=== PATIENT | female | born 1990 | race Caucasian/White ===

== ENCOUNTER 2019-02-23 10:35 | Emergency (ER) | payer OTHER ==
[~2019-02-23] VITALS: Ht 170.2 cm; Wt 79.4 kg
[2019-02-23] MEDS ORDERED: NORCO 5-325 TA1 EAC1 PO (11:28)
[2019-02-23] MEDS ORDERED: IBUPROFEN 800800 M1 PO (11:28)
[2019-02-23 11:48] VITALS: BP 148/115
== END 2019-02-23 11:49 | disposition home or self-care (01) ==
LOC: M.ERS 10:35
DX: M25.512 Pain in left shoulder (principal); Z88.0 Allergy status to penicillin; Z88.6 Allergy status to analgesic agent